=== PATIENT | female | born 1945 | race Caucasian/White ===

== ENCOUNTER 2022-01-15 08:00 | Outpatient (CLI) | payer MEDICARE, OTHER | END 2022-01-15 23:59 | disposition home or self-care (01) | LOC: LAB.S 08:00 | PROVIDERS: ATTEND Physician Assistant | DX: J02.9 Acute pharyngitis, unspecified (principal) | CPT/HCPCS: 87070 ==

== ENCOUNTER 2022-10-11 08:00 | Outpatient (CLI) | payer MEDICARE, OTHER ==
[2022-10-11 22:53] LABS: BACTERIAL VAGINOSIS DNA NEGATIVE (NEGATIVE); CANDIDA GLABRATA DNA NEGATIVE (NEGATIVE); CANDIDA GROUP DNA NEGATIVE (NEGATIVE); CANDIDA KRUSEI DNA NEGATIVE (NEGATIVE)
[2022-10-12 02:19] LABS: TRICHOMONAS VAGINALIS DNA NEGATIVE (NEGATIVE)
[2022-10-12 04:10] LABS: CHLAMYDIA TRACHOMATIS DNA NEGATIVE (NEGATIVE); NEISSERIA GONORRHOEAE DNA NEGATIVE (NEGATIVE); TRICHOMONAS VAGINALIS DNA NEGATIVE (NEGATIVE)
== END 2022-10-11 23:59 | disposition home or self-care (01) ==
LOC: LAB.S 08:00
PROVIDERS: ATTEND Physician Assistant
DX: R30.0 Dysuria (principal); N76.0 Acute vaginitis
CPT/HCPCS: 81514; 87086; 87181; 87491; 87591; 87661

== ENCOUNTER 2023-01-10 07:47 | Outpatient (CLI) | payer MEDICARE, OTHER | END 2023-01-10 23:59 | disposition home or self-care (01) | LOC: LAB.S 07:47 | PROVIDERS: ATTEND Physician Assistant | DX: R30.0 Dysuria (principal) | CPT/HCPCS: 87077; 87086; 87181 ==

== ENCOUNTER 2023-10-13 07:00 | Outpatient (CLI) | payer MEDICARE, OTHER ==
--- NOTE | 2023-10-13 11:02 | XRAY Report ---
PROCEDURE: Toe(s) 2+V LT INDICATIONS: LEFT GREAT TOE PAIN TECHNIQUE: 3 views of the first toe(s) acquired. COMPARISON: None. FINDINGS: Bones: No fractures or dislocations. No suspicious bony lesions. Soft tissues: No suspicious soft tissue densities. IMPRESSION: No definite fracture is seen. Reviewed by: Eric Wilburn MD on 10/13/2023 11:01 AM PDT Approved by: Eric Wilburn MD on 10/13/2023 11:01 AM PDT Station ID: [id number]
== END 2023-10-13 23:59 | disposition home or self-care (01) ==
LOC: DI.S 07:00
PROVIDERS: ATTEND Registered Nurse
DX: M79.675 Pain in left toe(s) (principal)
CPT/HCPCS: 73660

== ENCOUNTER 2023-11-12 08:00 | Outpatient (CLI) | payer MEDICARE, OTHER | END 2023-11-12 23:59 | disposition home or self-care (01) | LOC: LAB.N 08:00 | PROVIDERS: ATTEND Registered Nurse | DX: L03.211 Cellulitis of face (principal) | CPT/HCPCS: 87081 ==